=== PATIENT | male | born 1980 | race African-American/Black ===

== ENCOUNTER 2019-05-27 17:29 | Outpatient (CLI) | payer BC ==
--- NOTE | 2019-05-27 17:46 | RAD ---
EXAM: Chest PA and lateral: HISTORY: Cough. Congestion. Symptoms x2 weeks COMPARISON: None FINDINGS: Heart: Normal cardiac silhouette Aorta: Unremarkable Pulmonary vessels: Normal Costophrenic angles: Costophrenic angles are clear. Lungs: No consolidation or masses. Pneumothorax: No pneumothorax Osseous structures: No osseous abnormalities IMPRESSION: No acute cardiopulmonary process.
== END 2019-05-27 17:30 | disposition home or self-care (01) ==
LOC: SCSER/OP 17:29
PROVIDERS: ATTEND Family Medicine
DX: R05 Cough (principal)
CPT/HCPCS: 71046

== ENCOUNTER 2019-08-12 12:15 | Outpatient (CLI) | payer BC ==
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
== END 2019-08-12 12:16 | disposition home or self-care (01) ==
LOC: SCSRAD 12:15
PROVIDERS: ATTEND Family Medicine
DX: S09.93XA Unspecified injury of face, initial encounter (principal); S02.651A Fracture of angle of right mandible, initial encounter for closed fracture
CPT/HCPCS: 70100